=== PATIENT | male | born 1975 ===

== ENCOUNTER 2018-12-29 13:27 | Emergency (ER) | payer BC ==
--- NOTE | 2018-12-29 15:50 | ED ---
Skin Complaint - HPI Summary HPI Summary: Patient is a 43-year-old male who presents to the emergency department for mass to his left groin 2 weeks. Patient states that he tends to get boils and pilonidal cyst which she IS NORMAL. PATIENT STATES HE THOUGHT HE WAS GETTING AN INFECTED CYST IN HIS LEFT GROIN WHEN HE NOTICED A SMALL BUMP 2 WEEKS AGO. PATIENT STATES AREA HAS SLOWLY GOTTEN LARGER AND HE HAS BEEN SQUEEZING THE AREA WITHOUT ANY DRAINAGE. PATIENT STATES AREA IS NOT TENDER.. HE DENIES FEVER, CHILLS, ABDOMINAL PAIN, TESTICULAR PAIN OR SWELLING, URINARY SYMPTOMS. SYMPTOMS ARE MILD IN SEVERITY. NO CURRENT MODIFYING FACTORS. - History of Current Complaint Chief Complaint: EDRashSkinAbscess Time Seen by Provider: 12/29/18 15:14 Stated Complaint: CYST NEAR GROIN PER PT Hx Obtained From: Patient Pain Intensity: 0 - Allergy/Home Medications Allergies/Adverse Reactions: Allergies Allergy/AdvReac Type Severity Reaction Status Date / Time No Known Allergies Allergy Verified 12/29/18 13:40 PMH/Surg Hx/FS Hx/Imm Hx Previously Healthy: Yes Endocrine/Hematology History: Denies: Hx Diabetes Cardiovascular History: Denies: Hx Congestive Heart Failure, Hx Hypertension, Other Cardiovascular Problems/Disorders Respiratory History: Reports: Hx Asthma - mild Denies: Other Respiratory Problems/Disorders History: Denies: Hx Renal Disease - Immunization History Date of Tetanus Vaccine: UNKNOWN Date of Influenza Vaccine: UNKNOWN Infectious Disease History: No Infectious Disease History: Denies: Traveled Outside the [place] in Last 30 Days - Family History Known Family History: Positive: Non-Contributory - Social History Occupation: Employed Full-time Lives: With Family Alcohol Use: Weekly Substance Use Type: Reports: Marijuana Smoking Status (MU): Light Every Day Tobacco Smoker Review of Systems Constitutional: Negative Negative: Fever, Chills Gastrointestinal: Negative Negative: Abdominal Pain, Vomiting, Diarrhea, Nausea Genitourinary: Negative Positive: Other - lump left groin All Other Systems Reviewed And Are Negative: Yes Physical Exam Triage Information Reviewed: Yes Vital Signs On Initial Exam: Initial Vitals Temp Pulse Resp BP Pulse Ox 98.2 F 103 16 185/113 96 12/29/18 13:36 12/29/18 13:36 12/29/18 13:36 12/29/18 13:36 12/29/18 13:36 Vital Signs Reviewed: Yes Appearance: Positive: Well-Appearing - Pt. lying on bed in NAD. present. Skin: Positive: Warm, Dry, Other - roughly 5cm elongated area of induration noted to the left groin region. Area is freely movable. It is nontender. No overlying erythema. Head/Face: Positive: Normal Head/Face Inspection Eyes: Positive: Normal, EOMI, BRYSON Neck: Positive: Supple Neurological: Positive: Normal, CN Intact II-III Psychiatric: Positive: Affect/Mood Appropriate Diagnostics - Vital Signs Vital Signs Temp Pulse Resp BP Pulse Ox 12/29/18 15:14 98.2 F 92 20 172/101 99 12/29/18 13:36 98.2 F 103 16 185/113 96 - Laboratory Lab Statement: Any lab studies that have been ordered have been reviewed, and results considered in the medical decision making process. Course/Dx - Course Course Of Treatment: U/S obtained for further information of mass. U/S per radiology: FINDINGS: Corresponding to the palpable area in the left groin as indicated by the patient,. sonographic imaging reveals an ill-defined echogenically heterogeneous focus measuring 6.1. x 4.5 x 1.3 cm. There is no vascularity. There is no definite drainable fluid. IMPRESSION: Sonographic findings are consistent with phlegmonous change of the left groin subcutaneous. tissue corresponding to the palpable area. Will treat with Bactrim. Advised warm compresses. Schedule a follow up apt. with PCP or surgery. Return to ER for worsening sxs. Pt. understands and agrees with plan. - Differential Diagnoses - Skin Complaint Differential Diagnoses: Abscess, Cellulitis, Lymphadenitis, Lymphangitis - Diagnoses Provider Diagnoses: Phlegmon Discharge - Sign-Out/Discharge Documenting (check all that apply): Patient Departure Patient Received Moderate/Deep Sedation with Procedure: No - Discharge Plan Condition: Good Disposition: HOME Prescriptions: Sulfamethox/Trimethoprim DS* [Bactrim DS 800/160 TAB*] 1 tab PO BID #20 tab Patient Education Materials: Abscess (ED) Referrals: David Esquivel MD [Medical Doctor] - Rene Carlisle MD [Primary Care Provider] - Additional Instructions: Follow up with PCP or general surgery Take antibiotic as directed Apply warm compresses Avoid squeezing Return to ER for increase in size, redness, fever, or if concerned - Billing Disposition and Condition Condition: GOOD Disposition: Home
[2018-12-29 18:09] VITALS: BP 169/96
== END 2018-12-29 18:08 | disposition home or self-care (01) ==
LOC: ED 13:27
DX: L02.214 Cutaneous abscess of groin (principal); Z72.0 Tobacco use; J45.909 Unspecified asthma, uncomplicated
CPT/HCPCS: 99282